=== PATIENT | female | born 1965 | race Caucasian/White ===

== ENCOUNTER → 2017-10-06 | Outpatient (CLI) | payer OTHER ==
--- NOTE | 2017-10-06 18:12 | RADIOLOGY IMAGING REPORT ---
FACILITY: [facility] - [place] PATIENT NAME: Maria Dawkins : 1965 MR: [id number] V: [id number] EXAM DATE: ORDERING PHYSICIAN: KAR JASSO TECHNOLOGIST: Location: [facility] - [place] Patient: Maria Dawkins : 1965 Visit/Account:[id number] Date of Sevice: 10/06/2017 KNEE LEFT W/O CONTRAST COMPARISON: None. HISTORY: Left knee radiographs 10/06/2017. TECHNIQUE: Noncontrast axial CT of the left knee with coronal and sagittal reformats. One of the following dose optimization techniques was utilized in the performance of this exam: auto mated exposure control; adjustment of the mA and/or kV according to patient size; or use of iterative reconstruction technique. Specific details can be referenced in the facility's radiology CT exam op erational policy. CONTRAST: None. FINDINGS: BONES : Mildly comminuted predominantly oblique intra-articular fracture of the lateral tibial plate au, acute appearance, between 3 and 4 mm of depression, otherwise no significant displacement. Distal femur is intact. Patella is intact and patellar height is normal. There is normal femorotibial align ment. Small bone island in the proximal tibial metaphysis medially otherwise no bone lesions. No sign ificant degenerative changes. FLUID: Small simple suprapatellar effusion. SOFT TISSUES: No soft tissue hematoma. No muscle atrophy. OTHER: Negative. IMPRESSION: Acute mildly comminuted but predominantly oblique intra-articular fracture of the lateral tibial plat eau of the left knee with up to 4 mm of depression.. Report Dictated By: Allan Barrera at 10/06/2017 6:05 PM Report E-Signed By: Allan Barrera at 10/06/2017 6:09 PM WSN:[id number]
== END ==
LOC: CT 16:43
PROVIDERS: ATTEND Physician Assistant Medical
DX: S82.145A Nondisplaced bicondylar fracture of left tibia, initial encounter for closed fracture (principal)